=== PATIENT | male | born 1960 | race Caucasian/White ===

== ENCOUNTER 2017-04-22 07:42 | Emergency (ER) | payer BC, SELFPAY ==
[~2017-04-22] VITALS: Ht 180.3 cm; Wt 109.1 kg
[2017-04-22 08:29] LABS: BASO # 0.1 10^3/uL (0.0-0.2); BASO % 0.5 % (0.0-1.0); EOS # 0.5 10^3/uL (0.0-0.50); EOS % 4.4 % (0.0-3.0); IMMATURE GRANULOCYTE % 0.4 % (0-0); LYMPH # 1.5 10^3/uL (1.5-4.5); LYMPH % 14.3 % (24.0-44.0); MEAN CORPUSCULAR HEMOGLOBIN 29.3 pg (27.0-33.0); MEAN CORPUSCULAR HGB CONC 32.6 g/dl (32.0-36.5); MEAN CORPUSCULAR VOLUME 89.9 fl (80.0-96.0); MONO # 0.8 10^3/uL (0.0-0.8); NEUTROPHILS # 7.4 10^3/uL (1.8-7.7); NEUTROPHILS % 72.4 % (36.0-66.0); PLATELET COUNT, AUTOMATED 244 10^3/uL (150-450); WHITE BLOOD COUNT 10.3 10^3/uL (4.0-10.0)
[2017-04-22 08:39] LABS: ALBUMIN 3.2 GM/DL (3.2-5.2); ALBUMIN/GLOBULIN RATIO 0.86 (1.00-1.93); ALKALINE PHOSPHATASE 35 U/L (45-117); ALT/SGPT 23 U/L (12-78); ANION GAP 6 MEQ/L (8-16); AST/SGOT 9 U/L (7-37); BILIRUBIN,DIRECT < 0.1 MG/DL (0.0-0.2); BILIRUBIN,TOTAL 0.4 MG/DL (0.2-1.0); BLOOD UREA NITROGEN 14 MG/DL (7-18); CARBON DIOXIDE LEVEL 27 MEQ/L (21-32); CHLORIDE LEVEL 108 MEQ/L (98-107); CREATININE FOR GFR 0.91 MG/DL (0.70-1.30); GLOMERULAR FILTRATION RATE > 60.0 (>56); GLUCOSE, FASTING 124 MG/DL (70-105); SODIUM LEVEL 141 MEQ/L (136-145); TOTAL PROTEIN 6.9 GM/DL (6.4-8.2)
--- NOTE | 2017-04-22 08:47 | REP ---
Clinical: Chest pain . Comparison: None . Findings: The mediastinum and cardiac silhouette are stable and within normal limits for portable technique. The lung solis are clear without acute consolidation, effusion, or pneumothorax. Skeletal structures are intact. Impression: No acute cardiopulmonary process appreciated. Signed by Tejinder Weber MD 04/22/2017 08:38 A
[2017-04-22] MEDS ORDERED: ISOVUE-370 76% 100ML VIAL (Q9967) As Ordered ONE (09:20)
--- NOTE | 2017-04-22 10:05 | REP ---
Clinical: Chest pain radiating to the back. Technique: Axial contrast enhanced images from the thoracic inlet to the upper abdomen using 100 ml Isovue 370 intravenous contrast material with multiplanar MIP re-formations. Findings: Satisfactory enhancement of the thoracic aorta is achieved and there is no evidence for aortic aneurysm or dissection. No periaortic inflammatory changes or significant atherosclerotic changes are identified. The heart and pericardium appear normal. The pulmonary vasculature is unremarkable. The bilateral lung solis are well-aerated, symmetric and clear. No consolidation, significant nodule or mass lesion. No pleural effusion/reaction or pneumothorax. Tracheobronchial tree is patent no adenopathy. Surrounding musculoskeletal structures are intact. Impression: 1. Normal thoracic aorta without aneurysm or dissection. No evidence for atherosclerotic changes. Normal heart and pericardium. 2. No acute mediastinal or pleuroparenchymal process. Signed by Tejinder Weber MD 04/22/2017 09:56 A
--- NOTE | 2017-04-22 10:13 | REP ---
Clinical: Pain radiating to the back. Technique: Axial contrast enhanced images from the lung bases to the pubic symphysis obtained at maximal aortic enhancement with coronal and sagittal re-formations. Findings: The abdominal aorta demonstrates mild/moderate partially calcified atheromatous changes predominantly below the levels of the renal arteries, but is otherwise without evidence for aneurysm or dissection. No periaortic inflammatory changes are appreciated. Appropriate appearance and enhancement of the celiac axis, superior mesenteric artery (SMA), inferior mesenteric artery (CASSIA) and solitary bilateral renal arteries is appreciated. The bifurcation to common iliac arteries to the level of the bilateral common femoral arteries appear relatively normal and without associated stenosis or aneurysm. Liver, spleen, pancreas, bilateral adrenal glands and kidneys are normal. Cholelithiasis noted without CT evidence for acute cholecystitis. The enteric system is without obstruction or acute inflammatory process. Pelvis demonstrates normal bladder. Prostate gland is mildly prominent. No ascites. No free air. No adenopathy. No solitary mass lesion identified. Surrounding musculoskeletal structures demonstrate age-related changes without focal osseous abnormality. Impression: 1. Relatively normal appearance to the aorta and arterial vasculature without evidence for aneurysm or dissection. 2. Mild/moderate atherosclerotic changes primarily noted below the level of the renal arteries without evidence for stenosis or appreciable arterial enhancement abnormalities. 3. Cholelithiasis. 4. Mildly prominent prostate gland. Signed by Tejinder Weber MD 04/22/2017 10:03 A
[2017-04-22] MEDS ORDERED: PERCOCET 5MG/325MG TAB PO ONE (11:00)
[2017-04-22] MEDS ORDERED: LISI10TA4 PO (13:28)
[2017-04-22] MEDS ORDERED: ACETAMINOPHEN TAB 650MG DOSE (2X325MG) PO ONE (13:30)
[2017-04-22 13:52] VITALS: BP 116/69
--- NOTE | 2017-04-22 14:18 | ECGEPIP ---
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
--- NOTE | 2017-04-22 14:24 | ECGEPIP ---
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
== END 2017-04-22 13:55 | disposition home or self-care (01) ==
LOC: EDBD 07:42 → M ED 07:42
DX: R07.9 Chest pain, unspecified (principal); R06.02 Shortness of breath; R53.1 Weakness; I10 Essential (primary) hypertension; I47.1 Supraventricular tachycardia; Z82.49 Family history of ischemic heart disease and other diseases of the circulatory system; Z79.899 Other long term (current) drug therapy; Z87.891 Personal history of nicotine dependence
CPT/HCPCS: 36415; 71010; 71275; 74174; 80048; 80076; 82550; 82553; 83690; 83880; 85025; 93005; 93041; 94760; 99285; Q9967

== ENCOUNTER 2018-04-04 11:24 | Emergency (ER) | payer OTHER, SELFPAY ==
[2018-04-04] MEDS: NORCO, ANEXSIA 5/325MG TABLET (HYDROcodone/ACETAMINOPHEN) PO (12:58)
== END 2018-04-04 14:52 | disposition home or self-care (01) ==
LOC: M ED 11:24
DX: S22.32XA Fracture of one rib, left side, initial encounter for closed fracture (principal); S83.412A Sprain of medial collateral ligament of left knee, initial encounter; S13.4XXA Sprain of ligaments of cervical spine, initial encounter; S39.012A Strain of muscle, fascia and tendon of lower back, initial encounter; S20.229A Contusion of unspecified back wall of thorax, initial encounter; W11.XXXA Fall on and from ladder, initial encounter; Y92.098 Other place in other non-institutional residence as the place of occurrence of the external cause; I10 Essential (primary) hypertension; I25.2 Old myocardial infarction; E78.5 Hyperlipidemia, unspecified; Z87.891 Personal history of nicotine dependence; Z79.899 Other long term (current) drug therapy; Z79.82 Long term (current) use of aspirin
CPT/HCPCS: 71111

== ENCOUNTER 2019-02-09 08:14 | Emergency (ER) | payer OTHER ==
[~2019-02-09] VITALS: Ht 170.2 cm; Wt 104.5 kg
[~2019-02-09 08:14] MED LIST: ASPI-1 PO; ATOR1TAB21 PO; LISI10TA4 PO; LORA-243; METO100T5; OMEP20CA4; ROBA500T PO; TRAM50TA2 PO
[2019-02-09] MEDS ORDERED: MULTCAP PO (08:24)
[2019-02-09] MEDS ORDERED: PLAV1TAB2 PO (08:24)
[2019-02-09] MEDS ORDERED: NITR4TASL SL (08:24)
[2019-02-09] MEDS ORDERED: NS 500 ML IV ONE (08:45)
[2019-02-09 08:47] LABS: BASO # 0.1 10^3/uL (0.0-0.2); BASO % 0.6 % (0.0-1.0); EOS # 0.4 10^3/uL (0.0-0.5); EOS % 3.7 % (0.0-3.0); HEMATOCRIT 41.7 % (42.0-52.0); HEMOGLOBIN 14.1 g/dl (13.5-17.5); LYMPH # 1.5 10^3/uL (1.5-5.0); LYMPH % 15.7 % (24.0-44.0); MEAN CORPUSCULAR HEMOGLOBIN 30.9 pg (27.0-33.0); MEAN CORPUSCULAR HGB CONC 33.8 g/dl (32.0-36.5); MEAN CORPUSCULAR VOLUME 91.2 fl (80.0-96.0); MONO # 0.8 10^3/uL (0.0-0.8); MONO % 8.6 % (0.0-5.0); NEUTROPHILS # 6.8 10^3/uL (1.5-8.5); PLATELET COUNT, AUTOMATED 217 10^3/uL (150-450); RED BLOOD COUNT 4.57 10^6/uL (4.30-6.10); WHITE BLOOD COUNT 9.6 10^3/uL (4.0-10.0)
[2019-02-09 09:02] LABS: INR 1.04; PROTHROMBIN TIME 13.3 SECONDS (11.8-14.0)
[2019-02-09 09:03] LABS: PARTIAL THROMBOPLASTIN TIME 30.4 SECONDS (25.0-38.4)
[2019-02-09 09:05] LABS: D-DIMER QUANT 449.12 ng/ml (<500)
[2019-02-09 09:19] LABS: ALBUMIN 3.3 GM/DL (3.2-5.2); ALT/SGPT 25 U/L (12-78); BILIRUBIN,DIRECT 0.1 MG/DL (0.0-0.2); BILIRUBIN,TOTAL 0.5 MG/DL (0.2-1.0); BLOOD UREA NITROGEN 20 MG/DL (7-18); CALCIUM LEVEL 8.4 MG/DL (8.8-10.2); CARBON DIOXIDE LEVEL 25 MEQ/L (21-32); CHLORIDE LEVEL 110 MEQ/L (98-107); CK-MB VALUE MASS 2.3 NG/ML (<3.6); CPK CREATINE PHOSPHOKINASE 120 U/L (39-308); CREATININE FOR GFR 0.82 MG/DL (0.70-1.30); FREE T4 1.05 NG/DL (0.76-1.46); GLOMERULAR FILTRATION RATE > 60.0 (>49); GLUCOSE, FASTING 109 MG/DL (70-100); LIPASE 389 U/L (73-393); MB/CK RELATIVE INDEX 1.92 (< OR =4); POTASSIUM SERUM 4.2 MEQ/L (3.5-5.1); SODIUM LEVEL 140 MEQ/L (136-145); THYROID STIMULATING HORMONE 0.364 uIU/ML (0.358-3.740); TOTAL PROTEIN 6.5 GM/DL (6.4-8.2); TROPONIN I < 0.02 NG/ML (< 0.10)
--- NOTE | 2019-02-09 09:26 | REP ---
CHEST, TWO VIEWS: There is no evidence of acute infiltrate. No pleural effusion is seen. The heart is normal in size. The mediastinal silhouette is unremarkable. The visualized osseous structures are intact. IMPRESSION: No acute pulmonary disease. Electronically Signed by Nolberto Santos MD 02/09/2019 09:53 A
[2019-02-09 14:53] LABS: CK-MB VALUE MASS 1.6 NG/ML (<3.6); CPK CREATINE PHOSPHOKINASE 92 U/L (39-308); MB/CK RELATIVE INDEX 1.74 (< OR =4); TROPONIN I < 0.02 NG/ML (< 0.10)
[2019-02-09 15:10] VITALS: BP 110/63
--- NOTE | 2019-02-09 17:13 | ECGEPIP ---
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
--- NOTE | 2019-02-11 06:47 | ECGEPIP ---
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
== END 2019-02-09 15:18 | disposition home or self-care (01) ==
LOC: EDBD 08:14 → M ED 08:14
DX: R07.9 Chest pain, unspecified (principal); I10 Essential (primary) hypertension; E78.5 Hyperlipidemia, unspecified; Z79.899 Other long term (current) drug therapy; Z79.82 Long term (current) use of aspirin; Z87.891 Personal history of nicotine dependence

== ENCOUNTER → 2019-02-16 | Outpatient (REF) | payer OTHER ==
[~2019-02-16] MED LIST changes: +MULTCAP PO; +NITR4TASL SL; +PLAV1TAB2 PO
[2019-02-16 17:13] LABS: ALBUMIN 3.6 GM/DL (3.2-5.2); ALT/SGPT 26 U/L (12-78); BILIRUBIN,TOTAL 0.5 MG/DL (0.2-1.0); BLOOD UREA NITROGEN 18 MG/DL (7-18); CALCIUM LEVEL 8.8 MG/DL (8.8-10.2); CARBON DIOXIDE LEVEL 27 MEQ/L (21-32); CHLORIDE LEVEL 105 MEQ/L (98-107); CHOLESTEROL LEVEL 110 MG/DL (<200); CHOLESTEROL RISK RATIO 2.291 (<5); CREATININE FOR GFR 1.01 MG/DL (0.70-1.30); GLOMERULAR FILTRATION RATE > 60.0 (>49); GLUCOSE, FASTING 111 MG/DL (70-100); HDL CHOLESTEROL 48 MG/DL (>40); LDL CHOLESTEROL 50 MG/DL (<100); NON-HDL-C 62 MG/DL; POTASSIUM SERUM 4.8 MEQ/L (3.5-5.1); SODIUM LEVEL 140 MEQ/L (136-145); THYROID STIMULATING HORMONE 0.339 uIU/ML (0.358-3.740); TRIGLYCERIDES LEVEL 58 MG/DL (<150)
[2019-02-16 18:18] LABS: HEMOGLOBIN A1c 6.3 %
== END ==
LOC: M SFHCLERA 10:25
PROVIDERS: ATTEND Family Medicine
DX: E78.5 Hyperlipidemia, unspecified (principal); E66.01 Morbid (severe) obesity due to excess calories; Z12.5 Encounter for screening for malignant neoplasm of prostate

== ENCOUNTER → 2019-03-09 | Outpatient (REF) | payer OTHER ==
[2019-03-09 20:26] LABS: FREE T4 1.02 NG/DL (0.76-1.46); THYROID STIMULATING HORMONE 0.476 uIU/ML (0.358-3.740)
== END ==
LOC: M SFHCLERA 17:31
PROVIDERS: ATTEND Family Medicine
DX: R79.89 Other specified abnormal findings of blood chemistry (principal)

== ENCOUNTER → 2019-08-01 | Outpatient (REF) | payer MEDICAID ==
[~2019-08-01] MED LIST changes: +OMEP1CAP73; -OMEP20CA4
[2019-08-01 20:44] LABS: HEMOGLOBIN A1c 6.3 %
== END ==
LOC: M SFHCLERA 14:46
PROVIDERS: ATTEND Family Medicine
DX: R73.03 Prediabetes (principal)

== ENCOUNTER → 2019-10-14 | Outpatient (CLI) | payer MEDICAID ==
--- NOTE | 2019-10-15 10:38 | REP ---
REASON FOR EXAM: Low back pain. Eight views were obtained with flexion and extension bending views. Comparison exam is 04/04/2018, which showed chronic changes. Once again, there is posterior disc space narrowing at every level and more universal disc space narrowing at L4-5. There is air density in the L4-5 disc space, consistent with vacuum phenomenon from degenerative disc disease. There is anterior lipping at every level, status quo. Partial syndesmophyte formation is again seen, unchanged. The pedicles are intact bilaterally. Flexion and extension bending views show no instability. IMPRESSION: Chronic changes. Electronically Signed by Marcello Man DO 10/15/2019 10:57 A
== END ==
LOC: M LRY 16:39
PROVIDERS: ATTEND Family Medicine
DX: M51.36 Other intervertebral disc degeneration, lumbar region (principal); M54.5 Low back pain

== ENCOUNTER → 2020-03-23 | Outpatient (CLI) | payer OTHER ==
--- NOTE | 2020-03-23 09:50 | REP ---
INDICATION: LEFT KNEE PAIN left knee pain with giving out, pain radiates from the knee to the ankle. COMPARISON: Comparison left knee radiographs are from April 04, 2018.. TECHNIQUE: Axial, coronal, and sagittal imaging planes utilized. T1, proton density and T2 weighted scans are included with without fat saturation in the usual fashion. FINDINGS: Cortical and medullary bone signal intensity are normal. There is a small joint effusion. Superficial vein varicosities are seen about the knee. A small Bertrand's cyst is seen in the posteromedial popliteal soft tissues. There is minimal subcortical marrow edema in the central patella medially. This is associated with moderate chondromalacia patella with thinning of the articular cartilage at the level of the marrow edema. Patellar and quadriceps tendons are intact. Anterior and posterior cruciate ligaments appear intact. There is no evidence of medial or lateral collateral ligament disruption. There is a complex tear of the posterior body and posterior horn of the medial meniscus. The remaining medial meniscus is quite diminutive posteriorly. No displaced meniscal material is apparent. No lateral meniscal tear is seen. There is some mucoid is cystic change at the distal attachment of the anterior cruciate ligament at the anterior joint line. No evidence of loose body is appreciated. There is moderate chondromalacia involving the medial femoral condyle and to a lesser extent, the medial tibial plateau. Early medial compartment tibiofemoral spur formation is apparent. Exam is otherwise unremarkable. IMPRESSION: Findings consistent with chronic tear medial meniscus. 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 Early osteoarthritic spurring medial compartment. Small Bertrand's cyst and joint effusion. <Electronically signed by Christiano Krueger > 03/23/20 [id number]
== END ==
LOC: M RAD 07:07
PROVIDERS: ATTEND Family Medicine
DX: M25.562 Pain in left knee (principal); M94.262 Chondromalacia, left knee; S83.232A Complex tear of medial meniscus, current injury, left knee, initial encounter; X58.XXXA Exposure to other specified factors, initial encounter; Y92.9 Unspecified place or not applicable; M71.22 Synovial cyst of popliteal space [Baker], left knee; M25.462 Effusion, left knee

== ENCOUNTER → 2020-11-02 | Outpatient (CLI) | payer OTHER ==
[~2020-11-02] MED LIST changes: +LISI10TA22 PO; -LISI10TA4 PO
--- NOTE | 2020-11-02 15:18 | REPVR ---
PROCEDURE INFORMATION: Exam: MR Lumbar Spine Without Contrast Exam date and time: 11/02/2020 1:56 PM Age: 60 years old Clinical indication: Pain; Lumbago with sciatica; Left; Additional info: Lumbargo w/sciatica lt side TECHNIQUE: Imaging protocol: Multiplanar magnetic resonance images of the lumbar spine without intravenous contrast. COMPARISON: CR SPINE LS W/BENDING 10/14/2019 5:33 PM FINDINGS: Vertebrae: There is minimal retrolisthesis of L1 on L2, and L3 on L4. Vertebral body heights normal. There is disc desiccation and disc height loss L1-L2 through L4-L5. There is vacuum disc at L4-L5. Vertebral body marrow signal is unremarkable. Spinal cord: Conus terminates at T12-L1 and appears normal in signal intensity without intrinsic or extrinsic lesion. L1-L2: There is generalized disc bulge. There is mild facet degeneration. There is no significant spinal stenosis. There is no significant neural foraminal narrowing. L2-L3: There is generalized disc bulge. There is mild facet degeneration. There is no significant spinal stenosis. There is no significant neural foraminal narrowing. L3-L4: There is generalized disc bulge. There is mild facet degeneration. There is no significant spinal stenosis. There is [id number] right and mild left neural foraminal narrowing. L4-L5: There is a large generalized disc bulge. There is a broad-based left foraminal disc protrusion with severe neural foraminal narrowing and likely compression of exiting L4 nerve root. There is mild facet degeneration. There is no significant spinal stenosis. There is mild right neural foraminal narrowing. L5-S1: There is mild disc bulge. There is mild facet degeneration. There is no significant spinal stenosis. There is no significant neural foraminal narrowing. Soft tissues: Mild edema is noted in the upper to midthoracic posterior subcutaneous fat. Other findings: There is mild atherosclerotic change with minimal fusiform dilatation of distal abdominal aorta but only to 2.9 cm. IMPRESSION: Degenerative changes as described. There is a broad-based left foraminal disc protrusion with severe neural foraminal narrowing likely compressing the exiting left L4 nerve root and correlate clinically. Electronically signed by: Norma Trejo On 11/02/2020 15:18:23 PM
== END ==
LOC: M PLARAD 13:49
PROVIDERS: ATTEND Physician Assistant
DX: M51.26 Other intervertebral disc displacement, lumbar region (principal)

== ENCOUNTER → 2021-11-21 | Outpatient (CLI) | payer OTHER | LOC: M RAD 10:23 | PROVIDERS: ATTEND Physician Assistant | DX: F17.210 Nicotine dependence, cigarettes, uncomplicated (principal) ==

== ENCOUNTER 2022-02-05 10:19 | Emergency (ER) | payer OTHER ==
[~2022-02-05] VITALS: Ht 170.2 cm; Wt 128.1 kg
[2022-02-05] MEDS ORDERED: ISOS1TAB35 (10:27)
[2022-02-05] MEDS ORDERED: GABA-282 (10:27)
[2022-02-05] MEDS ORDERED: COLC0.6T47 (10:27)
[2022-02-05] MEDS ORDERED: NORT10CA2 (10:27)
[2022-02-05] MEDS ORDERED: FLUO10CA18 (10:27)
[2022-02-05 13:36] LABS: BASO # 0.1 10^3/uL (0.0-0.2); BASO % 0.6 % (0.0-1.0); EOS # 0.4 10^3/uL (0.0-0.5); EOS % 4.2 % (0.0-3.0); HEMATOCRIT 45.1 % (42.0-52.0); HEMOGLOBIN 14.8 g/dl (13.5-17.5); LYMPH % 19.1 % (24.0-44.0); MEAN CORPUSCULAR HGB CONC 32.8 g/dl (32.0-36.5); MEAN CORPUSCULAR VOLUME 91.5 fl (80.0-96.0); MONO # 0.8 10^3/uL (0.0-0.8); NEUTROPHILS % 67.1 % (36.0-66.0); PLATELET COUNT, AUTOMATED 224 10^3/uL (150-450); RED BLOOD COUNT 4.93 10^6/uL (4.30-6.10); WHITE BLOOD COUNT 10.4 10^3/uL (4.0-10.0)
[2022-02-05 14:02] LABS: BLOOD UREA NITROGEN 18 MG/DL (7-18); CARBON DIOXIDE LEVEL 29 MEQ/L (21-32); CHLORIDE LEVEL 105 MEQ/L (98-107); CREATININE FOR GFR 0.91 MG/DL (0.70-1.30); GLOMERULAR FILTRATION RATE > 60.0 (>49); GLUCOSE, FASTING 110 MG/DL (70-100); POTASSIUM SERUM 4.2 MEQ/L (3.5-5.1); SODIUM LEVEL 138 MEQ/L (136-145)
[2022-02-05 14:16] LABS: RSV AMPLIFICATION NEGATIVE (NEGATIVE)
[2022-02-05] MEDS ORDERED: PROHANCE 279.3MG/ML 15ML VIAL As Ordered ONE (18:22)
[2022-02-05] MEDS ORDERED: PROHANCE 279.3MG/ML 5ML VIAL As Ordered ONE (18:23)
[2022-02-05 19:41] VITALS: BP 146/88
== END 2022-02-05 20:15 | disposition home or self-care (01) ==
LOC: M ED 10:19
DX: M54.15 Radiculopathy, thoracolumbar region (principal); I10 Essential (primary) hypertension; K21.9 Gastro-esophageal reflux disease without esophagitis; Z79.899 Other long term (current) drug therapy; Z79.82 Long term (current) use of aspirin
CPT/HCPCS: 36415; 72158; 80048; 85025; 87631; 93971; 99284; A9576

== ENCOUNTER 2022-07-01 16:07 | Inpatient (IN) | payer OTHER ==
[~2022-07-01] VITALS: Ht 170.2 cm; Wt 135.8 kg
[~2022-07-01 16:07] MED LIST changes: +CLOP75TA99 PO; +COLC0.6T47; +FLUO10CA18; +GABA-282; +ISOS1TAB35; +NORT10CA2; -PLAV1TAB2 PO
[2022-07-01 18:33] LABS: BASO # 0.1 10^3/uL (0.0-0.2); BASO % 0.5 % (0.0-1.0); EOS # 0.4 10^3/uL (0.0-0.5); EOS % 3.7 % (0.0-3.0); HEMATOCRIT 31.8 % (42.0-52.0); HEMOGLOBIN 9.9 g/dl (13.5-17.5); LYMPH # 1.6 10^3/uL (1.5-5.0); LYMPH % 15.6 % (24.0-44.0); MEAN CORPUSCULAR HGB CONC 31.1 g/dl (32.0-36.5); MEAN CORPUSCULAR VOLUME 93.3 fl (80.0-96.0); MONO # 0.9 10^3/uL (0.0-0.8); MONO % 8.8 % (2.0-8.0); NEUTROPHILS # 7.3 10^3/uL (1.5-8.5); NEUTROPHILS % 70.7 % (36.0-66.0); PLATELET COUNT, AUTOMATED 224 10^3/uL (150-450); RED BLOOD COUNT 3.41 10^6/uL (4.30-6.10); WHITE BLOOD COUNT 10.3 10^3/uL (4.0-10.0)
[2022-07-01 18:47] LABS: INR 0.98; PROTHROMBIN TIME 13.2 SECONDS (12.5-14.5)
[2022-07-01 18:52] LABS: BILIRUBIN,DIRECT < 0.1 MG/DL (<0.4)
[2022-07-01 18:53] LABS: ALBUMIN 3.1 G/DL (3.2-5.2); ALKALINE PHOSPHATASE 28 U/L (46-116); ALT/SGPT 24 U/L (7.0-40); AST/SGOT 19 U/L (<34); BILIRUBIN,TOTAL 0.2 MG/DL (0.3-1.2); BLOOD UREA NITROGEN 23 MG/DL (9-23); CALCIUM LEVEL 8.4 MG/DL (8.3-10.6); CARBON DIOXIDE LEVEL 27 MMOL/L (20-31); CHLORIDE LEVEL 108 MMOL/L (98-107); CREATININE FOR GFR 0.87 MG/DL (0.70-1.30); GLOMERULAR FILTRATION RATE > 60.0 (>49); GLUCOSE, FASTING 118 MG/DL (74-106); POTASSIUM SERUM 4.6 MMOL/L (3.5-5.1); SODIUM LEVEL 141 MMOL/L (136-145); TOTAL PROTEIN 5.8 G/DL (5.7-8.2)
[2022-07-01] MEDS ORDERED: ISOVUE-370 76% 100ML VIAL As Ordered ONE (19:15)
[2022-07-01 21:30] LABS: RSV AMPLIFICATION NEGATIVE (NEGATIVE)
[2022-07-01] MEDS ORDERED: NORT25CA2 PO (22:26)
[2022-07-01] MEDS ORDERED: NITR4TASL SL (22:26)
[2022-07-01] MEDS ORDERED: METO100T5 PO (22:26)
[2022-07-01] MEDS ORDERED: OMEP-173 PO (22:26)
[2022-07-01] MEDS ORDERED: FLUO10CA18 PO (22:26)
[2022-07-01] MEDS ORDERED: ASPI-161 PO (22:26)
[2022-07-01] MEDS ORDERED: COLC0.6T47 PO (22:26)
[2022-07-01] MEDS ORDERED: OXYC1TAB23 PO (22:26)
[2022-07-01] MEDS ORDERED: VITMTA PO (22:26)
[2022-07-01] MEDS ORDERED: ACET-897 PO (22:26)
[2022-07-01] MEDS ORDERED: LISI10TA22 PO (22:26)
[2022-07-01] MEDS ORDERED: ATOR80TA59 PO (22:26)
[2022-07-01] MEDS ORDERED: ISOS1TAB35 PO (22:26)
[2022-07-01] MEDS ORDERED: GABA-282 PO (22:26)
[2022-07-01] MEDS ORDERED: HOME MED LIST COMPLETE! XX SCH (22:30)
[2022-07-02] MEDS: PANTOPRAZOLE 40MG VIAL IV SCH ×3 (00:06→20:55)
[2022-07-02] MEDS ORDERED: NS 1,000 ML IV SCH (00:10)
[2022-07-02 00:38] LABS: IRON (FE) 24 UG/DL (65-175); PERCENT SATURATION 8.8 % (19.7-50.0); TOTAL IRON BINDING CAPACITY 273 UG/DL (250-425)
[2022-07-02 00:41] LABS: FERRITIN 41.3 NG/ML (10.5-307.3); VITAMIN B12 LEVEL 423 PG/ML (211-911)
[2022-07-02 00:44] LABS: FOLATE 23.71 NG/ML (>5.4)
[2022-07-02 01:21] VITALS: BP 137/93
[2022-07-02] MEDS ORDERED: NITROGLYCERIN 0.4MG SUBL TABLET SL PRN (05:40)
[2022-07-02] MEDS ORDERED: PERCOCET 5MG/325MG TAB PO PRN (05:40)
[2022-07-02 05:48] VITALS: BP 122/74
[2022-07-02 06:11] LABS: HEMOGLOBIN 9.5 g/dl (13.5-17.5); MEAN CORPUSCULAR HGB CONC 30.6 g/dl (32.0-36.5); MEAN CORPUSCULAR VOLUME 94.5 fl (80.0-96.0); PLATELET COUNT, AUTOMATED 196 10^3/uL (150-450); RED BLOOD COUNT 3.28 10^6/uL (4.30-6.10); WHITE BLOOD COUNT 10.1 10^3/uL (4.0-10.0)
[2022-07-02 06:36] LABS: BLOOD UREA NITROGEN 20 MG/DL (9-23); CALCIUM LEVEL 8.1 MG/DL (8.3-10.6); CARBON DIOXIDE LEVEL 29 MMOL/L (20-31); CHLORIDE LEVEL 107 MMOL/L (98-107); CREATININE FOR GFR 0.86 MG/DL (0.70-1.30); GLOMERULAR FILTRATION RATE > 60.0 (>49); GLUCOSE, FASTING 103 MG/DL (74-106); POTASSIUM SERUM 4.1 MMOL/L (3.5-5.1); SODIUM LEVEL 140 MMOL/L (136-145)
[2022-07-02] MEDS ORDERED: OMEPRAZOLE 20MG CAP PO SCH (09:00)
[2022-07-02] MEDS: ASPIRIN 81MG ENTERIC TABLET PO SCH (09:21)
[2022-07-02] MEDS: GABAPENTIN 300 MG CAP PO SCH ×3 (09:21→20:54)
[2022-07-02] MEDS: METOPROLOL TARTRATE 100MG TAB PO SCH (09:21)
[2022-07-02] MEDS: ISOSORBIDE MON. (IMDUR) 30MG XR TAB PO SCH (09:21)
[2022-07-02] MEDS: FLUoxetine 10 MG CAP PO SCH (09:21)
[2022-07-02 12:17] LABS: HEMATOCRIT 31.1 % (42.0-52.0); HEMOGLOBIN 9.7 g/dl (13.5-17.5)
[2022-07-02 14:00] VITALS: BP 125/76
[2022-07-02] MEDS ORDERED: GOLYTELY SOLN 4000 ML BTL PO ONE (16:00)
[2022-07-02 18:07] LABS: HEMATOCRIT 33.9 % (42.0-52.0); HEMOGLOBIN 10.4 g/dl (13.5-17.5)
[2022-07-02] MEDS ORDERED: BISACODYL 5MG TAB PO ONE (19:00)
[2022-07-02 21:00] VITALS: BP 163/101
[2022-07-02] MEDS ORDERED: NORTRIPTYLINE 25 MG CAP PO SCH (21:00)
[2022-07-02] MEDS ORDERED: ATORVASTATIN 20 MG TAB PO SCH (21:00)
[2022-07-03 06:30] VITALS: BP 135/78
[2022-07-03 06:41] LABS: BASO # 0.1 10^3/uL (0.0-0.2); BASO % 0.5 % (0.0-1.0); EOS # 0.5 10^3/uL (0.0-0.5); EOS % 5.1 % (0.0-3.0); HEMATOCRIT 33.5 % (42.0-52.0); HEMOGLOBIN 10.5 g/dl (13.5-17.5); LYMPH # 1.5 10^3/uL (1.5-5.0); LYMPH % 15.8 % (24.0-44.0); MEAN CORPUSCULAR HEMOGLOBIN 28.9 pg (27.0-33.0); MEAN CORPUSCULAR HGB CONC 31.3 g/dl (32.0-36.5); MEAN CORPUSCULAR VOLUME 92.3 fl (80.0-96.0); MONO # 0.9 10^3/uL (0.0-0.8); MONO % 9.1 % (2.0-8.0); NEUTROPHILS # 6.5 10^3/uL (1.5-8.5); NEUTROPHILS % 69.2 % (36.0-66.0); PLATELET COUNT, AUTOMATED 216 10^3/uL (150-450); RED BLOOD COUNT 3.63 10^6/uL (4.30-6.10); WHITE BLOOD COUNT 9.4 10^3/uL (4.0-10.0)
[2022-07-03 07:02] LABS: MAGNESIUM LEVEL 1.8 MG/DL (1.8-2.4)
[2022-07-03 07:03] LABS: BLOOD UREA NITROGEN 12 MG/DL (9-23); CALCIUM LEVEL 8.3 MG/DL (8.3-10.6); CARBON DIOXIDE LEVEL 29 MMOL/L (20-31); CHLORIDE LEVEL 107 MMOL/L (98-107); CREATININE FOR GFR 0.85 MG/DL (0.70-1.30); GLOMERULAR FILTRATION RATE > 60.0 (>49); GLUCOSE, FASTING 110 MG/DL (74-106); POTASSIUM SERUM 3.9 MMOL/L (3.5-5.1); SODIUM LEVEL 141 MMOL/L (136-145)
[2022-07-03] MEDS: PANTOPRAZOLE 40MG VIAL IV SCH (08:37)
[2022-07-03 08:38] VITALS: BP 135/78
[2022-07-03] MEDS: ISOSORBIDE MON. (IMDUR) 30MG XR TAB PO SCH (08:38)
[2022-07-03] MEDS: GABAPENTIN 300 MG CAP PO SCH ×2 (08:38→16:00)
[2022-07-03] MEDS: FLUoxetine 10 MG CAP PO SCH (08:38)
[2022-07-03] MEDS: METOPROLOL TARTRATE 100MG TAB PO SCH (08:39)
[2022-07-03] MEDS: ASPIRIN 81MG ENTERIC TABLET PO SCH (09:00)
[2022-07-03 11:34] VITALS: BP 113/71
[2022-07-03] MEDS ORDERED: propofoL 200 MG/20 ML VIAL As Ordered ONE (12:35)
[2022-07-03] MEDS ORDERED: LIDOCAINE 2% INJ 100 MG/5 ML SYRINGE As Ordered ONE (12:35)
[2022-07-03] MEDS ORDERED: fentaNYL 100 MCG/2 ML INJECTION As Ordered ONE (12:41)
[2022-07-03] MEDS ORDERED: OMEP40CA4 PO (14:07)
[2022-07-03 14:56] VITALS: BP 106/68
[2022-07-03] MEDS ORDERED: FERR325T3 PO (18:45)
== END 2022-07-03 16:20 | disposition home or self-care (01) | DRG 253 ==
LOC: M ED 16:07 → M ED INP 23:09 → M MS5PR 07-02 00:25
PROVIDERS: ADMIT Family Medicine; ATTEND Internal Medicine
PROC: 0DBN8ZX Excision of Sigmoid Colon, Via Natural or Artificial Opening Endoscopic, Diagnostic (ICD-10-PCS; 2022-07-03)
PROC: 0DBM8ZX Excision of Descending Colon, Via Natural or Artificial Opening Endoscopic, Diagnostic (ICD-10-PCS; 2022-07-03)
PROC: 0DBL8ZX Excision of Transverse Colon, Via Natural or Artificial Opening Endoscopic, Diagnostic (ICD-10-PCS; 2022-07-03)
PROC: 0DJ08ZZ Inspection of Upper Intestinal Tract, Via Natural or Artificial Opening Endoscopic (ICD-10-PCS; principal; 2022-07-03 14:30)
DX: K62.5 Hemorrhage of anus and rectum (principal); Z68.42 Body mass index [BMI] 45.0-49.9, adult; I10 Essential (primary) hypertension; E78.5 Hyperlipidemia, unspecified; I25.10 Atherosclerotic heart disease of native coronary artery without angina pectoris; F41.9 Anxiety disorder, unspecified; D12.3 Benign neoplasm of transverse colon; K80.20 Calculus of gallbladder without cholecystitis without obstruction; D62 Acute posthemorrhagic anemia; F32.A Depression, unspecified; K64.8 Other hemorrhoids; E66.9 Obesity, unspecified; D12.7 Benign neoplasm of rectosigmoid junction; D12.4 Benign neoplasm of descending colon; K21.9 Gastro-esophageal reflux disease without esophagitis; K42.9 Umbilical hernia without obstruction or gangrene; K44.9 Diaphragmatic hernia without obstruction or gangrene; K57.30 Diverticulosis of large intestine without perforation or abscess without bleeding; Z87.891 Personal history of nicotine dependence; Z95.5 Presence of coronary angioplasty implant and graft; Z79.82 Long term (current) use of aspirin; Z79.02 Long term (current) use of antithrombotics/antiplatelets; Z79.899 Other long term (current) drug therapy; Z12.11 Encounter for screening for malignant neoplasm of colon

== ENCOUNTER 2022-07-20 12:23 | Emergency (ER) | payer OTHER ==
[~2022-07-20] VITALS: Ht 170.2 cm; Wt 135.8 kg
[~2022-07-20 12:23] MED LIST changes: +ACET-897 PO; +ASPI-161 PO; +ATOR80TA59 PO; +COLC0.6T47 PO; +FERR325T3 PO; +FLUO10CA18 PO; +GABA-282 PO; +ISOS1TAB35 PO; +METO100T5 PO; +NORT25CA2 PO; +OMEP-173 PO; +OMEP40CA4 PO; +OXYC1TAB23 PO; +VITMTA PO
[2022-07-20 13:00] LABS: BASO # 0.1 10^3/uL (0.0-0.2); BASO % 0.7 % (0.0-1.0); EOS # 0.6 10^3/uL (0.0-0.5); EOS % 5.9 % (0.0-3.0); HEMATOCRIT 36.2 % (42.0-52.0); HEMOGLOBIN 11.1 g/dl (13.5-17.5); LYMPH # 1.6 10^3/uL (1.5-5.0); LYMPH % 16.5 % (24.0-44.0); MEAN CORPUSCULAR HGB CONC 30.7 g/dl (32.0-36.5); MEAN CORPUSCULAR VOLUME 91.2 fl (80.0-96.0); MONO # 0.9 10^3/uL (0.0-0.8); MONO % 8.7 % (2.0-8.0); NEUTROPHILS # 6.6 10^3/uL (1.5-8.5); NEUTROPHILS % 67.5 % (36.0-66.0); PLATELET COUNT, AUTOMATED 272 10^3/uL (150-450); RED BLOOD COUNT 3.97 10^6/uL (4.30-6.10); WHITE BLOOD COUNT 9.8 10^3/uL (4.0-10.0)
[2022-07-20 13:19] LABS: INR 0.96
[2022-07-20 13:24] LABS: BLOOD UREA NITROGEN 23 MG/DL (9-23); CALCIUM LEVEL 8.4 MG/DL (8.3-10.6); CARBON DIOXIDE LEVEL 27 MMOL/L (20-31); CHLORIDE LEVEL 107 MMOL/L (98-107); CREATININE FOR GFR 0.85 MG/DL (0.70-1.30); GLOMERULAR FILTRATION RATE > 60.0 (>49); GLUCOSE, FASTING 127 MG/DL (74-106); POTASSIUM SERUM 4.3 MMOL/L (3.5-5.1); SODIUM LEVEL 141 MMOL/L (136-145)
[2022-07-20 16:51] LABS: HEMATOCRIT 34.4 % (42.0-52.0); HEMOGLOBIN 10.6 g/dl (13.5-17.5); MEAN CORPUSCULAR HEMOGLOBIN 28.4 pg (27.0-33.0); MEAN CORPUSCULAR HGB CONC 30.8 g/dl (32.0-36.5); MEAN CORPUSCULAR VOLUME 92.2 fl (80.0-96.0); PLATELET COUNT, AUTOMATED 243 10^3/uL (150-450); RED BLOOD COUNT 3.73 10^6/uL (4.30-6.10); WHITE BLOOD COUNT 9.9 10^3/uL (4.0-10.0)
[2022-07-20] MEDS ORDERED: LIDOCAINE W/EPINEPHRINE 1% 20ML VIAL SC ONE (17:20)
[2022-07-20] MEDS ORDERED: COLA100C5 PO (17:40)
[2022-07-20] MEDS ORDERED: PROC1CRE5 PR (17:40)
[2022-07-20 17:52] VITALS: BP 127/67
== END 2022-07-20 18:00 | disposition home or self-care (01) ==
LOC: M ED 12:23
DX: K64.4 Residual hemorrhoidal skin tags (principal); I25.2 Old myocardial infarction; K21.9 Gastro-esophageal reflux disease without esophagitis; E78.5 Hyperlipidemia, unspecified; M54.50 Low back pain, unspecified; Z79.82 Long term (current) use of aspirin; Z79.811 Long term (current) use of aromatase inhibitors; Z79.810 Long term (current) use of selective estrogen receptor modulators (SERMs); Z79.899 Other long term (current) drug therapy

== ENCOUNTER → 2022-09-18 | Outpatient (CLI) | payer OTHER ==
[~2022-09-18] MED LIST changes: +COLA100C5 PO; +PROC1CRE5 PR
[2022-09-18 17:18] LABS: HEMATOCRIT 30.3 % (42.0-52.0); HEMOGLOBIN 8.7 g/dl (13.5-17.5); MEAN CORPUSCULAR HEMOGLOBIN 26.2 pg (27.0-33.0); MEAN CORPUSCULAR HGB CONC 28.7 g/dl (32.0-36.5); MEAN CORPUSCULAR VOLUME 91.3 fl (80.0-96.0); PLATELET COUNT, AUTOMATED 233 10^3/uL (150-450); RED BLOOD COUNT 3.32 10^6/uL (4.30-6.10); WHITE BLOOD COUNT 9.9 10^3/uL (4.0-10.0)
[2022-09-18 18:04] LABS: ALBUMIN 3.3 G/DL (3.2-5.2); ALKALINE PHOSPHATASE 34 U/L (46-116); ALT/SGPT 45 U/L (7.0-40); AST/SGOT 29 U/L (<34); BILIRUBIN,TOTAL 0.2 MG/DL (0.3-1.2); BLOOD UREA NITROGEN 17 MG/DL (9-23); CALCIUM LEVEL 8.2 MG/DL (8.3-10.6); CARBON DIOXIDE LEVEL 29 MMOL/L (20-31); CHLORIDE LEVEL 106 MMOL/L (98-107); CHOLESTEROL LEVEL 87 MG/DL (<200); CHOLESTEROL RISK RATIO 2.21 (<5); GLOMERULAR FILTRATION RATE > 60.0 (>49); GLUCOSE, FASTING 97 MG/DL (74-106); HDL CHOLESTEROL 39.3 MG/DL (>40); LDL CHOLESTEROL 24.1 MG/DL (<100); NON-HDL-C 47.7 MG/DL; POTASSIUM SERUM 4.6 MMOL/L (3.5-5.1); SODIUM LEVEL 141 MMOL/L (136-145); TOTAL PROTEIN 6.2 G/DL (5.7-8.2); TRIGLYCERIDES LEVEL 118 MG/DL (<150)
== END ==
LOC: M RAD 16:03
PROVIDERS: ATTEND Physician Assistant
DX: R06.02 Shortness of breath (principal); R60.0 Localized edema

== ENCOUNTER → 2023-11-20 | Outpatient (CLI) | payer MEDICARE, OTHER ==
[~2023-11-20] MED LIST changes: -ASPI-161 PO; +ASPI-615 PO; +FLUO-290; +FLUO-290 PO; -FLUO10CA18; -FLUO10CA18 PO
== END ==
LOC: M PLAIMG 08:55
PROVIDERS: ATTEND Neurological Surgery
DX: M48.061 Spinal stenosis, lumbar region without neurogenic claudication (principal); M99.63 Osseous and subluxation stenosis of intervertebral foramina of lumbar region